=== PATIENT | female | born 1930 | race Caucasian/White ===

== ENCOUNTER → 2016-12-19 | Outpatient (CLI) | payer OTHER ==
[~2016-12-19] MED LIST: ALTERIL PO; ASPIR 8181 MG PO; COZAAR100 MG PO; GLUCOSAMINE-CH1 EAC2 PO; HYDROCODONE-AP1 EAC6 PO; KRILL OIL500 MG PO; METAMUCIL PAC1 UDPKT PO; MULTIVITAMINS1 EAC7 PO; NORCO 5-325 TA1 EACH PO; NORVASC2.5 MG PO; PLAVIX 75 MG TA75 M1 PO; PROTONIX40 M1 PO; STOOL SOFTENER100 MG PO; SYMBICORT160 MCG/4. INH; TOPROL XL50 MG PO; VITAMINC500 PO
[2016-12-19 10:17] LABS: CREATININE 1.4 mg/dL (0.6-1.0)
== END ==
LOC: MRI 09:35
PROVIDERS: Otolaryngology
DX: H90.5 Unspecified sensorineural hearing loss (principal)

== ENCOUNTER → 2017-03-01 | Outpatient (CLI) | payer OTHER | LOC: MRI 12:31 | DX: M48.061 Spinal stenosis, lumbar region without neurogenic claudication (principal); M41.86 Other forms of scoliosis, lumbar region; M43.16 Spondylolisthesis, lumbar region; J44.9 Chronic obstructive pulmonary disease, unspecified; M51.27 Other intervertebral disc displacement, lumbosacral region; Z98.890 Other specified postprocedural states ==